=== PATIENT | male | born 1985 | race Caucasian/White ===

== ENCOUNTER 2022-07-10 15:43 | Emergency (ER) | payer OTHER, SELFPAY ==
[2022-07-10 15:44] VITALS: BP 125/44; PULSE 87; RESP 16; TEMP 36.3; O2SAT 97; BMI 27.8
--- NOTE | 2022-07-10 16:20 | ED.VIS.LOWEX ---
HPI History of Present Illness HPI Narrative: Patient presents with pain in his right lower leg that began yesterday. Mother noticed him limping yesterday. Patient has a history of Down syndrome and is a poor informant. Mother denies any fevers or chills. Mother noted some swelling to his right lower leg today. Mother states that the right lower leg feels warm. Mother denies any direct trauma or injury. Mother denies any paresthesias or weakness. Chief Complaint: Lower Extremity Injury Informant: parent Limited: other (Down syndrome) Onset/Context/Timing Onset: Yesterday Context: Gradual Onset Timing: Continuous Location: Right lower leg and ankle Worsened by: Ambulation Relieved by: Rest Associated Symptoms Associated Symptoms: Negative for Parasthesia, Weakness or Loss of Funtion PFSH [facility] Medical History (Updated 07/10/22 @ 18:[address] Pieter Mora DO) Down's syndrome Home Medications cephalexin 500 mg capsule 500 mg PO Q6 #40 CAPSULES 07/10/22 [Rx Last Taken Unknown] Allergy/AdvReac Type Severity Reaction Status Date / Time adhesive tape [paper tape] AdvReac Rash Verified 07/10/22 15:44 Social History Smoking Status: Never smoker ROS ROS ED Constitutional Constitutional ED: Denies chills or fever(s) Eyes Eyes: Denies blurry vision or change in vision ENT ENT ED: Denies rhinorrhea or sore throat Cardiovascular Cardiovascular: Denies chest pain or palpitations Respiratory/Chest Respiratory/Chest: Denies cough or dyspnea Gastrointestinal Gastrointestinal: Denies nausea or vomiting Genitourinary Genitourinary ED: Denies dysuria or hematuria Musculoskeletal Musculoskeletal: Denies back pain or neck pain Integumentary Reports rash; Denies abscess Neurologic Neurologic: Denies headache(s) or weakness Allergic/Immunologic Allergic/Immunologic ED: Denies mouth swelling or urticaria EXAM Physical Exam Const Vital Signs: 07/10/22 15:44 Temperature 97.3 F L Temperature Source Temporal Pulse Rate 87 Respiratory Rate 16 Blood Pressure 125/44 H Blood Pressure Mean 71 Pulse Ox 97 Oxygen Delivery Method Room Air Positive well nourished and well developed General Appearance ED: well developed and NAD HEENT Reports moist mucous membranes Neck full ROM and supple Resp normal respiratory effort and clear to auscultation bilaterally Cardio regular rate and regular rhythm GI non-tender and non-distended Palpation: soft Extremity Extremity Narrative: There is some erythema and warmth over the anterior medial aspect of the right lower leg and ankle area. There is some tenderness over this area. There is some mild calf tenderness. There is some lower extremity edema on the right. Sensation was intact to light touch bilaterally in the lower extremities. Strength is 5/5 bilaterally in the lower extremities. There is full range of motion. Neuro CN's II-XII intact bilaterally, moves all extremities and no sensory deficits noted Sensorium / Orientation: alert Motor Exam: strength 5/5 throughout Psych mental status grossly normal Skin no wounds MDM MDM MDM Narrative Medical decision making narrative: Patient was given a dose of Ancef here. CBC shows a mild anemia with a hemoglobin of 12.6 and hematocrit 38.8. White blood cell count was normal. Comprehensive metabolic profile was essentially within normal limits. D-dimer was obtained and was elevated at 1.9. Because of this, patient was given a dose of Lovenox here. Patient was ordered an outpatient duplex of his right lower extremity to be done tomorrow. Patient was instructed return for this. Patient was given a prescription for Keflex. Patient was instructed to follow-up with his primary care physician in 5 to 7 days. Patient and mother understood and were agreeable with the plan. All questions were answered. Lab Data Labs: Laboratory Results - last 24 hr 07/10/22 07/10/22 07/10/22 16:57 16:57 17:05 WBC 10.1 RBC 4.30 L Hgb 12.6 L Hct 38.8 L MCV 90.2 MCH 29.3 MCHC 32.5 RDW Std Deviation 58.8 H RDW Coeff of Vinicio 17.9 H Plt Count 261 MPV 10.7 Immature Gran % (Auto) 0.600 Neut % (Auto) 52.8 Lymph % (Auto) 34.4 [place] % (Auto) 11.5 H Eos % (Auto) 0.3 Baso % (Auto) 0.4 Absolute Neuts (auto) 5.4 Absolute Lymphs (auto) 3.48 Nucleated RBC % 0 Platelet Estimate ADEQUATE Plt Morphology Comment LARGE RBC Morphology N CHROM Anisocytosis RARE Macrocytosis RARE D-Dimer Quant (PE/DVT) 1.90 H* Sodium 136 Potassium 4.3 Chloride 105 Carbon Dioxide 25.0 Anion Gap 6 BUN 20 H Creatinine 0.91 Estim Creat Clear Calc 85.83 Est GFR (MDRD) Af Amer 120 Est GFR (MDRD) Non-Af 99 BUN/Creatinine Ratio 21.9 H Glucose 105 Calcium 8.7 Total Bilirubin 0.50 AST 21 ALT 38 Alkaline Phosphatase 97 Total Protein 8.1 Albumin 2.9 L Globulin 5.2 H Albumin/Globulin Ratio 0.6 L Discharge Plan Triage Chief Complaint: Lower Extremity Injury ED Provider: Pieter Mora Dx/Rx/DC Orders Clinical Impression: Cellulitis of right lower leg, Right calf pain Prescriptions: New cephalexin [cephalexin] 500 MG capsule 500 mg PO Q6 Qty: 40 0RF Other Ambulatory Orders: Venous Duplex US, Unilateral (Stat) Facility: [facility] - Location: [facility] Ordered By: Dr. Pieter Mora Primary Care Provider: [facility] Doctor,Out of Referrals: [facility] Doctor,Out of [Primary Care Provider] - 5-7 Days Disposition Disposition: Home, Self Care
[2022-07-10 17:07] LABS: Absolute Lymphocyte Count 3.48 X10^3/uL (0.83-4.51); Absolute Neutrophil Count 5.4 X10^3/uL (2.0-7.7); Basophil# 0.04 X10^3/uL; Basophil% 0.4 % (0-1); Eosinophil# 0.03 X10^3/uL; Eosinophils% 0.3 % (0-5); Hematocrit 38.8 % (40-54); Hemoglobin 12.6 g/dL (13.0-16.5); Lymphocyte # 3.48 X10^3/ul (0.83-4.51); Lymphocyte % 34.4 % (19-41); Mean Corp Hgb Conc 32.5 g/dL (32-36); Mean Corpuscular Hgb 29.3 pg (27.0-32.0); Mean Corpuscular Volume 90.2 fL (80-94); Mean Platelet Vol. 10.7 fl (6.2-12.0); Monocyte# 1.16 X10^3/uL; Monocyte% 11.5 % (0-10); NRBC Flagged by Analyzer 0 % (0-5); Neutrophil # 5.36 X10^3/uL (2.7-7.7); Neutrophil % 52.8 % (47-70); POSITIVE COUNT YES; Platelet Count 261 K/mm3 (150-450); RBC Distribution Width CV 17.9 % (11.6-14.6); RBC Distribution Width SD 58.8 fl (35.1-43.9); White Blood Count 10.1 K/mm3 (4.4-11.0)
[2022-07-10 17:30] LABS: ALB/GLOB Ratio 0.6 RATIO (0.9-2.4); AST(SGOT) 21 U/L (15-37); Alanine Aminotransfer ALT/SGPT 38 U/L (16-61); Albumin, Serum 2.9 g/dL (3.2-5.0); Alkaline Phosphatase 97 U/L (45-117); Anion Gap 6 (5-15); BUN 20 mg/dL (7-18); BUN/Creat Ratio 21.9 RATIO (10-20); Calcium,Total 8.7 mg/dL (8.5-10.1); Chloride 105 mmol/L (98-107); Creatinine, Serum 0.91 mg/dL (0.70-1.30); EST Glomerular Filtration Rate 99 mL/min (>60); Est Glom Filt Rate - Afr Amer 120 mL/min (>60); Estimated Creatinine Clearance 85.83 ml/min; Globulin 5.2 g/dL (2.2-4.2); Glucose 105 mg/dL (74-106); Potassium 4.3 mmol/L (3.5-5.1); Protein, Total 8.1 g/dL (6.4-8.2); Sodium Level 136 mmol/L (136-145)
[2022-07-10 17:35] LABS: Differential Indicated SCAN CRITERIA MET
[2022-07-10 17:36] LABS: Anisocytosis RARE; Macrocytosis RARE; Platelet Estimate ADEQUATE (ADEQ); Platelet Morphology LARGE; Red Cell Morphology N CHROM NORMAL (NORM C&C)
[2022-07-10] MEDS: Cefazolin 1 GM/50 ML BAG IV (17:42)
[2022-07-10] MEDS: Enoxaparin 80 MG/0.8 ML Syringe 70 MG SC (19:01)
== END 2022-07-10 19:05 | disposition home or self-care (01) ==
PROVIDERS: Emergency Provider Emergency Medicine; Visit Provider Emergency Medicine
DX: L03.115 Cellulitis of right lower limb (principal); Q90.9 Down syndrome, unspecified; M79.661 Pain in right lower leg
CPT/HCPCS: 80053; 85025; 85379; 87040; 87077; 96365; 96372; 99282; J7050; A4216

== ENCOUNTER 2022-07-11 11:43 | Emergency (ER) | payer OTHER, SELFPAY ==
[2022-07-11 11:44] VITALS: BP 133/47; PULSE 86; RESP 14; TEMP 36.7; O2SAT 96; BMI 28.1
[2022-07-11 12:03] VITALS: RESP 20
--- NOTE | 2022-07-11 12:03 | EDS_ITS ---
HPI History of Present Illness Chief Complaint: Lower Extremity Injury Informant: patient and parent Narrative Narrative: 36-year-old male with a history of Down syndrome is brought to the emergency room today after being seen here last night diagnosed with cellulitis and brought back today for a duplex ultrasound of the right leg. This was positive for a right peroneal vein clot. No chest pain or shortness of breath. They are planning on driving back back to [place] tomorrow. There is a familial history of clotting disorders. [facility] Medical History Down's syndrome Home Medications cephalexin 500 mg capsule 500 mg PO Q6 #40 CAPSULES 07/10/22 [Rx Last Taken Unknown] Allergy/AdvReac Type Severity Reaction Status Date / Time adhesive tape [paper tape] AdvReac Rash Verified 07/11/22 11:46 Social History (Updated 07/11/22 @ 12:[address] Иван Louis DO) Smoking Status: Never smoker substance use type: does not use ROS ROS ED Constitutional Constitutional ED: Denies chills or weight loss Eyes Eyes: Denies change in vision or diplopia ENT ENT ED: Denies ear pain, rhinorrhea or sore throat Cardiovascular Cardiovascular: Denies chest pain, orthopnea, palpitations or racing heartbeat Respiratory/Chest Respiratory/Chest: Denies cough, dyspnea or orthopnea Gastrointestinal Gastrointestinal: Denies abdominal pain, diarrhea, nausea or vomiting Genitourinary Genitourinary ED: Denies dysuria, hematuria or urinary frequency Musculoskeletal Musculoskeletal: Denies arthralgias or myalgias Integumentary Reports rash; Denies abscess Neurologic Neurologic: Denies headache(s) or weakness Psychiatric Psychiatric: Denies anxiety, depression, suicidal ideation or suicidal thoughts Endocrine Endocrinology: Denies polydipsia, polyphagia or polyuria Allergic/Immunologic Allergic/Immunologic ED: Denies mouth swelling, tongue swelling or urticaria EXAM Physical Exam Const Vital Signs: 07/11/22 11:44 Temperature 98.0 F Temperature Source Temporal Pulse Rate 86 Respiratory Rate 14 Blood Pressure 133/47 H Blood Pressure Mean 75 Pulse Ox 96 Oxygen Delivery Method Room Air Positive well nourished and well developed General Appearance ED: well developed HEENT Reports normocephalic, head/scalp atraumatic and moist mucous membranes Eyes PERRL and EOMs intact bilaterally Neck no lymphadenopathy, supple and no JVD Resp normal respiratory effort and clear to auscultation bilaterally Cardio regular rate, regular rhythm and no murmurs GI normal to inspection, nondistended, normoactive bowel sounds and non-tender Palpation: soft Back/Spine no CVA tenderness and normal ROM Extremity normal to inspection General Extremety ED: Negative for edema General Extremity: Negative for edema Neuro oriented x3 and CN's II-XII intact bilaterally Sensorium / Orientation: alert Motor Exam: strength 5/5 throughout Psych mental status grossly normal Mood & Affect: Negative for depressed or tearful Skin no wounds Skin Narrative: There is some mild erythema of the right lower extremity. There is calf tenderness and some distended veins. No palpable cords. MDM MDM MDM Narrative Medical decision making narrative: In speaking with mother and the patient while this is a peroneal vein clot and technically below the knee it does not need to be treated. However they are embarking on a long trip tomorrow in the car. Unknown to go ahead and write for Eliquis but would advise them to follow-up with primary care when they get home. Discharge Plan Triage Chief Complaint: Lower Extremity Injury ED Provider: Иван Louis Dx/Rx/DC Orders Prescriptions: No Action cephalexin [cephalexin] 500 MG capsule 500 mg PO Q6 Qty: 40 0RF Primary Care Provider: Jenny Turner,Out of Referrals: Jenny Turner,Out of [Primary Care Provider] -
--- NOTE | 2022-07-15 09:56 | CASEMGMT ---
Addendum entered and electronically signed by Catie Ross RN 07/15/22 09:58: Note was a late entry for 07/14/22 at 1400. Griselda Ross RN CM Original Note: ANALY HOLT Follow-up: notice received that pt's Eliquis requires prior authorization. Noted in documentation that pt and his family were returning to [place] on 07/12/22. Call placed to [facility] pharmacy in [place] stating the prescription had not been picked up d/t prior authorization pending. Call placed to the phone number listed for pt which was the same as his mother's phone. Message left for pt's mother to contact this ANALY HOLT regarding the Eliquis prescription. Griselda Ross RN CM
--- NOTE | 2022-07-15 09:59 | CASEMGMT ---
ANALY CM: Pt's mother Lexi Warren returned this RN CM's call and stated they picked up a 5 day supply of the Eliquis and paid pal. Pt's mother is working with their PCP to obtain the remainder of the prescription at their local pharmacy in [place]. No further needs identified or requested. Griselda Ross RN CM
== END 2022-07-11 12:35 | disposition home or self-care (01) ==
LOC: ED 12:22
PROVIDERS: Emergency Provider Emergency Medicine; Visit Provider Emergency Medicine
DX: I82.451 Acute embolism and thrombosis of right peroneal vein (principal); Q90.9 Down syndrome, unspecified
CPT/HCPCS: 99282

== ENCOUNTER → 2022-07-11 | Outpatient (CLI) | payer OTHER, SELFPAY ==
--- NOTE | 2022-07-11 11:09 | VDLE_ITS ---
Reason For Study: LEG PAIN RIGHT LEFT GSV is normal. CFV is compressible, spontaneous, phasic, CFV is compressible, spontaneous, phasic, competent, and demonstrates normal competent and demonstrates normal augmentation. augmentation. FV is compressible, spontaneous, phasic, competent and demonstrates normal augmentation. POP V is compressible, spontaneous, phasic, competent and demonstrates normal augmentation. T/P Trunk is compressible. PTV is compressible. Rt Bijal V is dilated and non-compressible. Echogenic filling and continuous flow noted in Sagittal view. Procedure This is a venous duplex using B-mode, color flow and spectral Doppler. Exam performed in department. The exam was diagnostic. A preliminary report was called and/or faxed to [facility] Triage. VL/Venous Duplex US, Unilateral Interpretation Summary Acute deep vein thrombosis is noted in the right peroneal vein. Ordering Physician: Pieter Mora Referring Physician: Pieter Mora Performed By: Marc Hassan RVT
== END | disposition home or self-care (01) ==
PROVIDERS: Referring Provider Emergency Medicine; Visit Provider Emergency Medicine
DX: M79.661 Pain in right lower leg (principal)
CPT/HCPCS: 93971

== ENCOUNTER 2023-06-17 12:04 | Emergency (ER) | payer OTHER, SELFPAY ==
[2023-06-17 12:05] VITALS: BP 126/76; PULSE 76; RESP 16; TEMP 36.3; O2SAT 98
--- NOTE | 2023-06-17 12:18 | EDS_ITS ---
HPI History of Present Illness Chief Complaint: Lower Extremity Injury Informant: patient Onset/Context/Timing Onset: Days (5) Narrative Narrative: Patient was walking 5 days ago as he does daily, he inverted his ankle after stepping on a walnut in the grass, but did not stop him from being able to continue to walk and he did not fall or have any other injury. He seemed to walk okay for the next several days including yesterday, but today woke up and his ankle is swollen and he does not want to put weight on it. There is no apparent pain or swelling anywhere else. He is on warfarin, INR 6 days ago was 3.5, he has a metal valve and mother states his doctors want him to be between 3.1-5. He has had no bleeding from anywhere. No other symptoms. [facility] Medical History (Updated 06/17/23 @ 12:[address] Robin Saunders MD) Down's syndrome Factor V Leiden Prothrombin mutation Home Medications cephalexin 500 mg capsule 500 mg PO Q6 #40 CAPSULES 07/10/22 [Rx Last Taken Unknown] apixaban 5 mg tablet (Eliquis) 5 mg PO BID #74 tabs 07/11/22 [Rx Last Taken Unknown] Allergy/AdvReac Type Severity Reaction Status Date / Time adhesive tape [paper tape] AdvReac Rash Verified 06/17/23 12:10 Social History Smoking Status: Never smoker substance use type: does not use ROS ROS ED Constitutional Constitutional ED: Denies chills or fever(s) Musculoskeletal Musculoskeletal: Reports extremity pain; Denies neck pain Integumentary Denies Abrasions, rash or wounds Neurologic Neurologic: Denies paresthesias or weakness EXAM Physical Exam Const Vital Signs: 06/17/23 12:05 Temperature 97.4 F L Temperature Source Temporal Pulse Rate 76 Respiratory Rate 16 Blood Pressure 126/76 H Blood Pressure Mean 92 Pulse Ox 98 Oxygen Delivery Method Room Air Positive well nourished and well developed General Appearance ED: well developed and NAD Neck full ROM and supple Back/Spine normal ROM and normal to inspection Extremity full ROM Extremity Narrative: Mild swelling around the right ankle, but no edema in the leg proper calf tenderness. Full range of motion. Tender mildly in the right medial and lateral malleoli, nontender throughout the foot. No purpura or ecchymosis. No signs of infection or cellulitis or obvious lesions or signs of trauma otherwise. With medial and lateral force on the foot, the patient does not complain of pain and there is no laxity or movement. Neurovascular intact distally. Neuro oriented x3, no focal motor deficits and no sensory deficits noted Sensorium / Orientation: alert Psych mental status grossly normal and thought process normal Skin no wounds Rashes: no rashes MDM MDM MDM Narrative Medical decision making narrative: Mother was concerned this could have something to do with his blood thinner or blood clotting disorders. I do not think this has anything to do with that, I think he more likely had an ankle sprain, and although the symptoms were delayed which I agree with, he does walk on his own around the house and is possible that he had a repeat injury/inversion given that he likely had a sprain and the ligaments about the lateral malleolus oftentimes her weakened. We obtained an x-ray in order to rule out fracture, 3 views of interpretation show no acute fracture or dislocation. Reassured, placed in an Aircast, and we tried to get him to walk. He did well, the Aircast did help. Given appropriate discharge instructions. Radiography Diagnostic Testing: Clinical Impression(s) from Imaging Studies Ankle X-Ray 06/17/23 12:31 IMPRESSION: No acute fracture or dislocation identified in the right ankle. Electronically Signed: Nithya Villasenor MD at 12:53 EDT Reading Location ID and State: [address] [place] [address] Tel , Service support , Discharge Plan Triage Chief Complaint: Lower Extremity Injury ED Provider: Robin Saunders Dx/Rx/DC Orders Clinical Impression: Right ankle sprain Instructions: ED Ankle Sprain (Adult) Prescriptions: No Action cephalexin [cephalexin] 500 MG capsule 500 mg PO Q6 Qty: 40 0RF Eliquis 5 mg tablet 5 mg PO BID Qty: 74 0RF Rx Instructions: 10 mg twice a day for the first week. Then 5 mg twice a day. Primary Care Provider: SHARI HERNÁNDEZ Referrals: Doctor,Your [Non-Staff] - 10-14 Days if not better Disposition Disposition: Home, Self Care Discharge Date/Time: 06/17/23 13:32
--- NOTE | 2023-06-17 12:31 | RAD_ITS ---
HISTORY: injury/pain. TECHNIQUE: XR Ankle Min 3 Views. COMPARISON: None. FINDINGS: BONES : No acute fracture identified. Mineralization unremarkable. JOINTS: No dislocation. Joint spaces maintained. SOFT TISSUES: Moderate soft tissue swelling and joint effusion. RAD/Ankle min 3 Views IMPRESSION: No acute fracture or dislocation identified in the right ankle. Electronically Signed: Nithya Villasenor MD at 12:53 EDT ,
== END 2023-06-17 13:32 | disposition home or self-care (01) ==
PROVIDERS: Emergency Provider Emergency Medicine; Visit Provider Emergency Medicine
DX: S93.401A Sprain of unspecified ligament of right ankle, initial encounter (principal); D68.51 Activated protein C resistance; Q90.9 Down syndrome, unspecified; Z79.01 Long term (current) use of anticoagulants; X58.XXXA Exposure to other specified factors, initial encounter; Y93.01 Activity, walking, marching and hiking; Y92.89 Other specified places as the place of occurrence of the external cause
CPT/HCPCS: 73610; 99283